=== PATIENT | female | born 1945 | race Caucasian/White ===

== ENCOUNTER 2018-10-19 14:15 | Day surgery (SDC) | payer OTHER ==
[~2018-10-19] VITALS: Ht 154.9 cm; Wt 70.0 kg
[~2018-10-19 14:15] MED LIST: LOVA40; PANT40; Paxil40 MG
[2018-10-19] MEDS ORDERED: Super Calcium600 MG (15:15)
[2018-10-19] MEDS ORDERED: CHOL10002 (15:15)
[2018-10-19] MEDS ORDERED: VITAMIN C500 M1 (15:16)
[2018-10-19] MEDS ORDERED: Vitamin B Comple1 EA (15:16)
[2018-10-19] MEDS ORDERED: BISA5EC (15:17)
--- NOTE | 2018-10-19 15:26 | NUR ---
10/19/18 1526 Nakia Atkins FIRST IV ATTEMPT IN RIGHT HAND WAS UNSUCCESSFUL BY [email or web address]. SECOND ATTEMPT IN RIGHT HAND BY [email or web address] WAS SUCCESSFUL AND TOLERATED WELL.
== END 2018-10-19 17:25 | disposition home or self-care (01) ==
LOC: ORSCSDS 14:15
PROVIDERS: Internal Medicine Gastroenterology
PROC: 0DJD8ZZ Inspection of Lower Intestinal Tract, Via Natural or Artificial Opening Endoscopic (ICD-10-PCS; principal; 2018-10-19 15:45)
PROC: 0DB58ZX Excision of Esophagus, Via Natural or Artificial Opening Endoscopic, Diagnostic (ICD-10-PCS; principal; 2018-10-19 15:45)
PROC: 0D757ZZ Dilation of Esophagus, Via Natural or Artificial Opening (ICD-10-PCS; principal; 2018-10-19 15:45)
PROC: 0DB68ZX Excision of Stomach, Via Natural or Artificial Opening Endoscopic, Diagnostic (ICD-10-PCS; principal; 2018-10-19 15:45)
DX: K22.70 Barrett's esophagus without dysplasia (principal); R13.14 Dysphagia, pharyngoesophageal phase; R10.12 Left upper quadrant pain; K31.7 Polyp of stomach and duodenum; K44.9 Diaphragmatic hernia without obstruction or gangrene; Z12.11 Encounter for screening for malignant neoplasm of colon; Z86.010 Personal history of colon polyps; Z80.0 Family history of malignant neoplasm of digestive organs; K57.30 Diverticulosis of large intestine without perforation or abscess without bleeding; E78.5 Hyperlipidemia, unspecified; Z79.899 Other long term (current) drug therapy; Z86.73 Personal history of transient ischemic attack (TIA), and cerebral infarction without residual deficits
CPT/HCPCS: 43239; 43450; G0105; 88305; J7120

== ENCOUNTER → 2018-10-27 | Outpatient (CLI) | payer OTHER ==
[~2018-10-27] MED LIST changes: +BISA5EC; +CHOL10002; +Super Calcium600 MG; +VITAMIN C500 M1; +Vitamin B Comple1 EA
== END | disposition home or self-care (01) ==
LOC: LAB SHORT 13:50 → LAB 13:50
DX: R30.0 Dysuria (principal)
CPT/HCPCS: 87086

== ENCOUNTER → 2019-09-07 | Outpatient (CLI) | payer OTHER | END | disposition home or self-care (01) | LOC: LAB SHORT 19:39 → LAB 19:39 | DX: R39.9 Unspecified symptoms and signs involving the genitourinary system (principal) | CPT/HCPCS: 87086 ==

== ENCOUNTER 2020-05-29 14:14 | Day surgery (SDC) | payer OTHER ==
[~2020-05-29] VITALS: Ht 154.9 cm; Wt 72.8 kg
== END 2020-05-29 16:34 | disposition home or self-care (01) ==
LOC: ORSCSDS 14:14
PROVIDERS: Internal Medicine Gastroenterology
PROC: 0DB58ZX Excision of Esophagus, Via Natural or Artificial Opening Endoscopic, Diagnostic (ICD-10-PCS; principal; 2020-05-29 15:30)
DX: K22.70 Barrett's esophagus without dysplasia (principal); D64.9 Anemia, unspecified; K92.1 Melena; E78.5 Hyperlipidemia, unspecified; F32.9 Major depressive disorder, single episode, unspecified; K59.00 Constipation, unspecified; E66.9 Obesity, unspecified; Z68.30 Body mass index [BMI] 30.0-30.9, adult; Z87.891 Personal history of nicotine dependence; Z79.899 Other long term (current) drug therapy
CPT/HCPCS: J2704; J7120